=== PATIENT | male | born 1995 | race Caucasian/White ===

== ENCOUNTER 2017-04-27 09:54 | Emergency (ER) | payer OTHER ==
--- NOTE | 2017-04-27 10:19 | EDPHY ---
General Narrative: CHIEF COMPLAINT: Testicular pain HISTORY OF PRESENT ILLNESS: Patient complains of right testicular pain. This started this morning when he woke at 6:30 a.m.. Was mild. He got up and started today. He went to work as normal. He felt the pain worsened a little bit more approximately 1 hour ago. At that time he went to the restroom and examined himself. He he felt that the right testicle was somewhat swollen compared to normal from. No warmth to it. No drainage from the penis. No intercourse for the past 24 hours. He did masturbate last night with no painful ejaculation. He has had unprotected intercourse with only 1 partner over the past year. No flank pain. No abdominal pain. No other associated complaints or modifying factors. No previous incidence of torsion or testicular abnormality. REVIEW OF SYSTEMS: Ten systems reviewed and are negative unless otherwise noted in the HPI PCP: None SPECIALISTS: None PAST MEDICAL HISTORY: None PAST SURGICAL HISTORY: None SOCIAL HISTORY: Nonsmoker. Occasional alcohol. No drug use. FAMILY HISTORY: Noncontributory EXAMINATION General Appearance: Alert, no distress Head: normocephalic, atraumatic Eyes: Pupils equal and round, no conjunctival pallor or injection ENT, Mouth: Mucous membranes moist. Airway patent Neck: Normal inspection, supple, non-tender Respiratory: Lungs are clear to auscultation. No wheezing, rhonchi or crackles Cardiovascular: Regular rate and rhythm. No murmur Gastrointestinal: Abdomen is soft and nontender. No distention or tympany. No rigidity. No CVA tenderness. : Circumcised penis. No drainage from the meatus. No abnormality of the glans. Left testicle is normal in appearance and without tenderness. Right testicle is normal in appearance but tender palpation. There is no subcu emphysema. No evidence of necrosis. No cellulitis or fluctuance. Skin: Warm and dry, no rash. No petechiae or purpura. No cellulitis. Skin is grossly intact Extremities: Nontender, no pedal edema Psychiatric: Mood and affect normal DIFFERENTIAL DIAGNOSES: Including but not limited to epididymitis, varicocele, torsion, spermatocele MDM: 10:15 a.m. Right testicular pain of approximately 4 hours duration. He noted swelling 1 hour ago. Ultrasound was ordered before I entered the room. Patient is in no acute distress. No evidence of abscess. No subcu emphysema of the scrotum. No evidence of necrosis. Thirty and clean urine samples have been ordered. He is resting comfortably in no acute distress. He does not require any pain medication at this time. Low clinical suspicion for torsion, but ultrasound has already been ordered for this. 11:11 a.m. Contacted by radiologist Dr. Grant. Ultrasound of the testicles and scrotum reveals mild right-sided epididymitis. Mild bilateral hydroceles. No torsion. This does correlate clinically. Urinalysis pending. 11:50 a.m. Urinalysis unremarkable. I will treat the patient with 250 mg Rocephin IM here and doxycycline 100 mg twice daily at home. He is discharged in stable condition with recommendations of rest, scrotal elevation and follow up with urologist for resolution. - History Smoking Status: Never smoked - Objective Vital Signs: Initial Vital Signs Temperature (C) 98.1 F 04/27/17 09:56 Heart Rate 66 04/27/17 09:56 Respiratory Rate 18 04/27/17 09:56 Blood Pressure 151/72 H 04/27/17 09:56 O2 Sat (%) 99 04/27/17 09:56 O2 Delivery Mode Room Air Allergies/Adverse Reactions: No Known Allergies Allergy (Unverified 04/27/17 09:56) Home Medications: Medication Instructions Recorded Doxycycline Hyclate 100 mg PO BID #28 capsule 04/27/17 Hydrocodone/APAP 5/325 [[place] 1 - 2 tab PO Q4H PRN #7 tab 04/27/17 5/325 (*)] Departure - Departure Disposition: Home, Routine, Self-Care Clinical Impression: Right epididymitis, Testicular pain, right Condition: Good Instructions: Epididymitis (ED) Additional Instructions: 1. Antibiotics as prescribed to completion of unless told to stop by urologist 2. Contact the urologist as discussed for definitive outpatient care 3. ED precautions as discussed Referrals: Gavino Salas MD [Medical Doctor] - As per Instructions Prescriptions: Doxycycline Hyclate 100 mg PO BID #28 capsule Hydrocodone/APAP 5/325 [[place] 5/325 (*)] 1 - 2 tab PO Q4H PRN #7 tab PRN Reason: Pain, Moderate
[2017-04-27 11:32] LABS: COLOR PALE YELLOW; LEUKOCYTE ESTERASE,URINE NEGATIVE (NEGATIVE); NITRITE,URINE NEGATIVE (NEGATIVE)
[2017-04-27 11:33] LABS: MUCUS TRACE /lpf (NONE-1+)
[2017-04-27] MEDS ORDERED: CEFTRIAXONE IM 350 MG/ML SYRINGE IM ONE (11:36)
[2017-04-27 12:34] VITALS: BP 127/67; PULSE 69; RESP 16; TEMP 97.9; O2SAT 96
[2017-04-29 12:59] LABS: CHLAMYDIA AMPLIFICATION GENPRB NEGATIVE (NEGATIVE)
== END 2017-04-27 12:34 | disposition home or self-care (01) ==
DX: N45.1 Epididymitis (principal)
CPT/HCPCS: J0696